=== PATIENT | female | born 1950 ===

== ENCOUNTER 2016-07-25 06:14 | Day surgery (SDC) | payer MEDICARE ==
[2016-07-18 09:57] VITALS: BMI 29.8
[2016-07-25] MEDS ORDERED: Propofol 10 mg/ml Inj (20 ML) ONE (08:12)
[2016-07-25] MEDS ORDERED: Sodium Chloride 0.9% 1,000 ML IV SCH (08:45)
[2016-07-25 09:23] VITALS: BP 129/73; PULSE 52; RESP 18; TEMP 98; O2SAT 98
== END 2016-07-25 10:02 | disposition home or self-care (01) ==
LOC: ENDO 06:14
PROVIDERS: ATTEND Internal Medicine Gastroenterology
DX: D12.0 Benign neoplasm of cecum (principal); D12.5 Benign neoplasm of sigmoid colon; K64.8 Other hemorrhoids; K62.89 Other specified diseases of anus and rectum; Z12.11 Encounter for screening for malignant neoplasm of colon; I25.10 Atherosclerotic heart disease of native coronary artery without angina pectoris; I10 Essential (primary) hypertension; E78.5 Hyperlipidemia, unspecified; Z95.1 Presence of aortocoronary bypass graft
CPT/HCPCS: 45380; 45381; 45385; 88305; J2001; J2704; J3010; J7040